=== PATIENT | female | born 2000 | race Hispanic/Latino ===

== ENCOUNTER 2022-06-09 09:56 | Outpatient (CLI) | payer OTHER | END 2022-06-09 09:57 | disposition home or self-care (01) | LOC: CSHULT 09:56 | PROVIDERS: ATTEND Nurse Practitioner Women's Health | DX: Z34.82 Encounter for supervision of other normal pregnancy, second trimester (principal); Z3A.21 21 weeks gestation of pregnancy | CPT/HCPCS: 76805 ==

== ENCOUNTER 2022-10-05 17:01 | Day surgery (SDC) | payer OTHER, SELFPAY ==
[2022-10-05 17:44] VITALS: BMI 48.4
[2022-10-05] MEDS ORDERED: hydrALAZINE 20 MG/ML VIAL SLOW IVP PRN (17:55)
== END 2022-10-05 19:25 | disposition home or self-care (01) ==
LOC: CSHLD/OP 17:01
PROVIDERS: ATTEND Family Medicine
DX: O36.8130 Decreased fetal movements, third trimester, not applicable or unspecified (principal); Z3A.38 38 weeks gestation of pregnancy; Z79.899 Other long term (current) drug therapy
CPT/HCPCS: 76819; 99283